=== PATIENT | female | born 1945 | race Caucasian/White ===

== ENCOUNTER → 2019-09-17 16:44 | Outpatient (CLI) | payer OTHER, SELFPAY ==
--- NOTE | 2019-09-17 | DI.MRI.S_ITS ---
PROCEDURE: MR CERVICAL SPINE WO CON INDICATIONS: Muscle weakness (generalized) TECHNIQUE: Noncontrast sagittal T1 spin echo and T2 fast spin echo, sagittal STIR, foraminal oblique sagittal T2 fast spin echo, and axial gradient echo or T2 fast spin echo through the cervical spine. COMPARISON: None. FINDINGS: Image quality: Excellent. Alignment and Curvature: There is straightening and reversal of normal cervical lordosis centered at C4-5 level. Minimal anterolisthesis of C3 on C4 is seen. Minimal retrolisthesis of C5 on C6 is also noted. Bone Marrow: Marrow demonstrates normal overall signal. Spinal Cord: Visualized spinal cord has normal size and signal. No cerebellar tonsillar herniation. Paraspinous Soft Tissues: No paravertebral masses. Prevertebral soft tissues are normal in thickness. C2-C3: There is mild diffuse disc bulge and bilateral facet hypertrophic changes with mild left-sided neuroforaminal narrowing. No significant canal stenosis. C3-C4: Broad-based disc bulge and bilateral facet hypertrophic changes are seen with mild central canal stenosis and mild to moderate left-sided neuroforaminal narrowing. Bulging disc likely contacting exiting left C4 nerve root. C4-C5: Decreased intervertebral disc space is seen. Broad-based disc bulge and bilateral facet hypertrophic changes are seen causing mild to moderate central canal stenosis and left worse than right bilateral neuroforaminal narrowing. Bulging disc likely contacting bilateral exiting C5 nerve roots. C5-C6: Decreased intervertebral disc space and degenerative endplate changes are seen. Broad-based disc bulge and bilateral facet hypertrophic changes are seen with superimposed central to left-sided disc herniation causing moderate central canal stenosis and bilateral neuroforaminal narrowing. There is likely compression of bilateral exiting C6 nerve roots. C6-C7: Decreased intervertebral disc space and degenerative endplate changes are seen. Broad-based disc bulge and bilateral facet hypertrophic changes are seen causing moderate central canal stenosis and bilateral neuroforaminal narrowing. There is likely mild compression of exiting left C7 nerve root. C7-T1: Normal appearance. IMPRESSION: 1. Straightening and reversal of normal cervical lordosis. Minimal anterolisthesis at C3-4 level. Minimal retrolisthesis at C5-6 level. No marrow edema. No acute compression fracture. No abnormal cervical spinal cord signal. 2. Degenerative disc bulge and bilateral facet hypertrophic changes throughout cervical spine causing [id number] central canal stenosis and left worse than right bilateral neuroforaminal narrowing as described in detail above. Dictated by: David Coello M.D. on 09/18/2019 at 10:13 Approved by: David Coello M.D. on 09/18/2019 at 10:19
== END ==
PROVIDERS: PCP Family Medicine; Visit Provider Family Medicine
DX: M62.81 Muscle weakness (generalized) (principal); M25.511 Pain in right shoulder; M50.31 Other cervical disc degeneration, high cervical region; M48.02 Spinal stenosis, cervical region
CPT/HCPCS: 72141

== ENCOUNTER → 2019-11-01 11:04 | Outpatient (CLI) | payer BC, MEDICARE, SELFPAY ==
--- NOTE | 2019-11-01 | DI.US.S_ITS ---
PROCEDURE: US ABDOMEN LIMITED INDICATIONS: RUQ PAIN TECHNIQUE: Real-time focused scanning was performed of the abdomen, with image documentation. COMPARISON: None. FINDINGS: Liver measures 16.7 cm and demonstrates unremarkable echotexture. No focal hepatic lesion seen. Gallstones are present however no wall thickening or pericholecystic fluid. No sonographic Kowalski's sign. No intra-or extrahepatic bile duct dilatation. Pancreas is only partially visualized although grossly unremarkable where seen IMPRESSION: Cholelithiasis however no additional sonographic criteria for acute cholecystitis. Please correlate clinically and with LFTs. Dictated by: Sky Rees M.D. on 11/01/2019 at 16:32 Approved by: Sky Rees M.D. on 11/01/2019 at 16:34
== END ==
PROVIDERS: PCP Family Medicine; Visit Provider Physician Assistant
DX: R10.11 Right upper quadrant pain (principal); K80.20 Calculus of gallbladder without cholecystitis without obstruction
CPT/HCPCS: 76705

== ENCOUNTER → 2021-04-15 08:29 | Outpatient (CLI) | payer BC, MEDICARE, SELFPAY ==
[2021-04-15 19:44] LABS: Add Manual Diff / Slide Review NO; Basophils Absolute Auto 100 /uL (0-100); Basophils Percent Auto 1.5 % (0-2); Eosinophils Absolute Auto 200 /uL (0-450); Eosinophils Percent Auto 3.3 % (2-4); Hematocrit 39.9 % (36-46); Hemoglobin 13.1 g/dL (12.0-16.0); Lymphocytes Absolute Auto 1700 /uL (1100-4500); Lymphocytes Percent Auto 34.9 % (25-40); Mean Corpuscular HGB Conc 32.9 % (30-36); Mean Corpuscular Hemoglobin 28.9 PG (26-34); Mean Corpuscular Volume 87.8 fL (80-100); Monocytes Absolute Auto 400 /uL (0-900); Monocytes Percent Auto 8.8 % (3-14); Neutrophils Absolute Auto 2600 /uL (1500-7000); Neutrophils Percent Auto 51.5 % (50-75); Platelet Count 284 X10^3/uL (150-400); Red Blood Cell Count 4.55 X10^6/uL (4.0-5.2); Red Cell Distribution Width 13.5 % (11.6-14.8)
[2021-04-15 20:06] LABS: Alanine Aminotransferase 16 IU/L (<35); Albumin 4.4 g/dL (3.5-5.0); Albumin Globulin Ratio 1.5 (1.0-2.8); Alkaline Phosphatase 60 U/L (38-126); Aspartate Aminotransferase 27 IU/L (14-36); BUN Creatinine Ratio 20.3 (6-22); Bilirubin Total 0.5 mg/dL (0.2-1.3); Blood Urea Nitrogen 16 mg/dL (7-17); Carbon Dioxide 26 mmol/L (22-32); Chloride 102 mmol/L (98-107); Cholesterol 272 mg/dL (140-199); Estimated Glomerular Filt Rate > 60.0 mL/min (>60); Globulin 2.9 g/dL (1.7-4.1); Glucose 94 mg/dL (80-110); HDL Cholesterol 65 mg/dL (40-60); HEMOLYSIS < 15 (0-50); LDL Cholesterol Calculated 177 mg/dL (<100); Lipase 263 U/L (23-300); Potassium 4.8 mmol/L (3.4-5.1); Sodium 137 mmol/L (137-145); Total Protein 7.3 g/dL (6.3-8.2); Triglycerides 152 mg/dL (35-150)
== END ==
PROVIDERS: PCP Physician Assistant; Visit Provider Family Medicine
DX: E78.5 Hyperlipidemia, unspecified (principal); R10.13 Epigastric pain
CPT/HCPCS: 80053; 80061; 83690; 85025

== ENCOUNTER → 2021-08-02 08:12 | Outpatient (CLI) | payer BC, MEDICARE, SELFPAY ==
[2021-08-03 20:29] LABS: COVID19 - ORCAS (NP or Nasal) Negative (Negative)
== END ==
PROVIDERS: PCP Physician Assistant; Visit Provider Family Medicine
DX: Z20.822 Contact with and (suspected) exposure to COVID-19 (principal)
CPT/HCPCS: U0003

== ENCOUNTER → 2022-02-25 08:21 | Outpatient (CLI) | payer BC, MEDICARE, SELFPAY ==
[2022-02-25 21:59] LABS: COVID19 - ORCAS (NP or Nasal) Negative (Negative)
== END ==
PROVIDERS: PCP Physician Assistant; Visit Provider Physician Assistant
DX: Z20.822 Contact with and (suspected) exposure to COVID-19 (principal)
CPT/HCPCS: U0003

== ENCOUNTER → 2022-12-14 10:48 | Outpatient (CLI) | payer BC, SELFPAY ==
[2022-12-14 19:46] LABS: Alanine Aminotransferase 18 IU/L (<35); Albumin 4.1 g/dL (3.5-5.0); Albumin Globulin Ratio 1.3 (1.0-2.8); Alkaline Phosphatase 63 U/L (38-126); Aspartate Aminotransferase 24 IU/L (14-36); BUN Creatinine Ratio 24.4 (6-22); Bilirubin Total 0.5 mg/dL (0.2-1.3); Blood Urea Nitrogen 21 mg/dL (7-17); Calcium 9.3 mg/dL (8.4-10.2); Carbon Dioxide 28 mmol/L (22-32); Chloride 99 mmol/L (98-107); Cholesterol 250 mg/dL (140-199); Estimated Glomerular Filt Rate > 60 mL/min (>60); Globulin 3.1 g/dL (1.7-4.1); Glucose 94 mg/dL (80-110); HDL Cholesterol 53 mg/dL (40-60); HEMOLYSIS < 15 (0-50); LDL Cholesterol Calculated 162 mg/dL (<100); Potassium 4.4 mmol/L (3.4-5.1); Sodium 135 mmol/L (137-145); Total Protein 7.2 g/dL (6.3-8.2); Triglycerides 177 mg/dL (35-150)
[2022-12-14 19:54] LABS: Add Manual Diff / Slide Review NO; Basophils Absolute Auto 0 /uL (0-100); Basophils Percent Auto 0.8 % (0-2); Eosinophils Absolute Auto 100 /uL (0-450); Eosinophils Percent Auto 3.1 % (2-4); Hematocrit 37.6 % (36-46); Hemoglobin 12.9 g/dL (12.0-16.0); Lymphocytes Absolute Auto 1500 /uL (1100-4500); Lymphocytes Percent Auto 33.9 % (25-40); Mean Corpuscular HGB Conc 34.2 % (30-36); Mean Corpuscular Hemoglobin 28.6 PG (26-34); Mean Corpuscular Volume 83.5 fL (80-100); Monocytes Absolute Auto 400 /uL (0-900); Monocytes Percent Auto 8.6 % (3-14); Neutrophils Absolute Auto 2300 /uL (1500-7000); Neutrophils Percent Auto 53.6 % (50-75); Platelet Count 208 X10^3/uL (150-400); Red Cell Distribution Width 13.2 % (11.6-14.8); White Blood Cell Count 4.4 X10^3/uL (4.5-11.0)
[2022-12-14 20:23] LABS: Thyroid Stimulating Hormone 1.84 uIU/mL (0.47-4.68)
== END ==
PROVIDERS: PCP Physician Assistant; Visit Provider Physician Assistant
DX: E78.5 Hyperlipidemia, unspecified (principal); Z83.49 Family history of other endocrine, nutritional and metabolic diseases
CPT/HCPCS: 80053; 80061; 84443; 85025

== ENCOUNTER → 2022-12-20 09:07 | Outpatient (CLI) | payer BC, SELFPAY | PROVIDERS: PCP Physician Assistant; Visit Provider Physician Assistant | DX: R10.9 Unspecified abdominal pain (principal) | CPT/HCPCS: 86677 ==

== ENCOUNTER → 2022-12-22 15:51 | Outpatient (CLI) | payer BC, SELFPAY ==
[2022-12-26 08:26] LABS: Fecal Immunochemical Test Negative (Negative)
== END ==
PROVIDERS: PCP Physician Assistant; Visit Provider Physician Assistant
DX: R10.13 Epigastric pain (principal); R10.9 Unspecified abdominal pain
CPT/HCPCS: 82274; 87045; 87177; 87899